=== PATIENT | female | born 1960 | race African-American/Black ===

== ENCOUNTER 2020-05-27 12:01 | Inpatient (IN) | payer OTHER, SELFPAY ==
[2020-05-27] VITALS (17 sets, daily range): BP systolic 146–215; BP diastolic 84–162; PULSE 75–105; RESP 16–28; TEMP 36.3–36.6; O2SAT 77–100; BMI 61.7
--- NOTE | ~2020-05-27 | CT_ITS ---
EXAMINATION: CT chest wo con EXAM DATE: 05/27/2020 14:18 INDICATION: Shortness of breath, pneumonia versus cancer, abnormal chest x-ray. Wheezing. TECHNIQUE: Spiral CT of the chest without contrast. Axial, coronal and sagittal images were reviewe d. Coronal maximum intensity pixel images of chest reviewed. The dose-length product (DLP) for this examination was 774.49 mGy-cm. The exposure was tailored according to patient size (auto mA exposur e control), and iterative reconstruction (ASIR) was used as additional dose reduction technique. Tristan elation is made to chest x-ray same day. FINDINGS: The main, central pulmonary arteries are significantly dilated which can indicate elevated pulmonary arterial pressure, pulmonary arterial hypertension. This is likely what accounts for the c hest x-ray, right infrahilar abnormality. Mild patchy mosaic attenuation, appearance most consistent with mild pulmonary edema, although this could also be air trapping from reactive airway disease. No confluent consolidation. There are no pleural or pericardial effusions. Tracheobronchial tree is pa tent. There is no mediastinal, hilar or axillary lymphadenopathy. There is no pneumothorax. Hea rt normal in size. Patient may have a left anterior descending coronary artery stent. Upper abdome n is unremarkable. There is thoracic spondylosis without osteoblastic or osteolytic lesions identif ied. IMPRESSION: 1. Pulmonary arterial hypertension. 2. Cardiomegaly and possible mild pulmonary edema versus air trapping, reactive airway disease. 3. No evidence of lung cancer. Reviewed, dictated and finalized at location A. IMPRESSION: 1. Pulmonary arterial hypertension. 2. Cardiomegaly and possible mild pulmonary edema versus air trapping, reactiv e airway disease. 3. No evidence of lung cancer.
--- NOTE | ~2020-05-27 | XR_ITS ---
XR chest 2V DATE: 05/27/2020 12:53 INDICATION: Shortness of breath TECHNIQUE: AP and lateral views COMPARISON: None FINDINGS: : There is asymmetric prominence overlying the right lower hilar area; this may be some pul monary consolidation in the right lower lobe versus pulmonary mass lesion. Patchy infiltrate or atele ctasis is suggested in the right mid and both lower lung zones. Examination is limited due to body lynn bitus and AP technique. Cardiomegaly. No apparent pleural effusion. No pneumothorax is evident. IMPRESSION: Cardiac megaly, pulmonary vascular congestion and redistribution, suggesting mild congest berto changes Prominent opacity overlying the right infrahilar area which may represent some overlying consolidatio n; pulmonary mass lesion however is not excluded. Consider CT thorax for more definitive evaluation Patchy infiltrates in the right mid and both lower lung zones; consider pneumonia, pulmonary edema Reviewed, dictated and finalized at location B. IMPRESSION: Cardiac megaly, pulmonary vascular congestion and redistribution, s uggesting mild congestive changes Prominent opacity overlying the right infrahilar area which may represent some overlying consolidation; pulmonary mass lesion however is not excluded. Conside r CT thorax for more definitive evaluation Patchy infiltrates in the right mid and both lower lung zones; consider pneumon ia, pulmonary edema
--- NOTE | 2020-05-27 12:19 | ECG_ITS ---
Measurements Intervals [place] Rate: 98 P: 54 NH: 171 QRS: 13 QRSD: 98 T: 52 QT: 374 QTc: 478 Interpretive Statements SINUS RHYTHM POSSIBLE LEFT ATRIAL ENLARGEMENT BASELINE WANDER- I, II, AVR, AVL, AVF, V4-V6 BORDERLINE ECG Electronically Signed On 05-27-2020 12:34:09 CDT by Augustin Oh D.O.
[2020-05-27 12:31] LABS: Hematocrit 40.6 % (37.0-47.0); Hemoglobin 12.8 g/dL (12.0-15.0); Mean Corpuscular HGB Conc 31.5 g/dl (32-36); Mean Corpuscular Hemoglobin 27.4 pg (26-34); Mean Corpuscular Volume 86.9 fl (80-100); Mean Platelet Volume 9.3 fl (7.4-10.4); Platelet Count Result 250 k/mm3 (150-375); Red Blood Count 4.67 M/mm3 (4.2-5.4); Red Cell Distribution Width 13.3 % (11.5-14.5); White Blood Count 6.8 K/mm3 (4.5-10.0)
[2020-05-27 12:43] LABS: Anion Gap 9 mmol/L (8-16); Blood Urea Nitrogen 8 mg/dL (7-17); Calcium 9.4 mg/dL (8.4-10.2); Carbon Dioxide 38 mmol/L (22-30); Chloride 95 mmol/L (98-107); Estimated CRCL calculation 128 ml/min; Estimated Glomerular Filt Rate > 60; Glucose 190 mg/dL (65-105); Potassium 3.5 mmol/L (3.4-5.0); Sodium 142 mmol/L (137-145)
[2020-05-27 12:50] LABS: Eosinophils Absolute Manual 0.06 K/mm3 (0.02-0.5); Eosinophils Percent Manual 1 % (0-4); Lymphocytes Absolute Manual 2.44 K/mm3 (1.1-4.5); Monocytes Percent Manual 3 % (3-9); Neutrophils Percent Manual 60 % (46-73); Total Cells Counted 100
[2020-05-27 12:51] LABS: Platelet Estimate Adequate (Adequate)
[2020-05-27 12:53] LABS: Large Platelets Present
[2020-05-27] MEDS: LABETALOL HCL INJ 100 MG/20 ML VIAL 20 MG IV PUSH ×2 (13:00→13:19)
[2020-05-27] MEDS: lisinopriL 20 MG TABLET PO (13:01)
--- NOTE | 2020-05-27 13:13 | ED.SOB ---
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 Patient denies any chest pain, fever, chills, nausea, vomiting. Patient did not take her medications today because she was planning to go see her doctor, currently patient on aspirin, Plavix and 2 L of oxygen all the time. Patient requested to go to [facility] after we make a diagnosis. Related Data Home Medications Medication Instructions Recorded Confirmed albuterol sulfate 90 mcg/actuation 2 inhalation INHALATION Q4H PRN gm 03/08/20 aerosol inhaler aspirin 81 mg tablet,delayed 81 mg PO DAILY 03/08/20 release clopidogrel 75 mg tablet 75 mg PO DAILY 03/08/20 furosemide 20 mg tablet 20 mg PO QAM 03/08/20 hydrocodone 7.5 mg-acetaminophen 1 tablet PO Q6H PRN 03/08/20 325 mg tablet lisinopril 20 mg tablet 20 mg PO DAILY 03/08/20 metoprolol succinate 50 mg 50 mg PO DAILY 03/08/20 tablet,extended release 24 hr montelukast 10 mg tablet 10 mg PO DAILY 03/08/20 nifedipine 30 mg tablet,extended 30 mg PO DAILY 03/08/20 release 24 hr nitroglycerin 0.4 mg/hr 1 patch TRANSDERM DAILY 03/08/20 transdermal 24 hour patch oxybutynin chloride 10 mg 10 mg PO DAILY 03/08/20 tablet,extended release 24 hr pantoprazole 40 mg tablet,delayed 40 mg PO QAM 03/08/20 release pravastatin 20 mg tablet 20 mg PO DAILY 03/08/20 Allergies Allergy/AdvReac Type Severity Reaction Status Date / Time Iodinated Contrast Media Allergy hives Verified 05/27/20 13:13 penicillin V [From Pen-Vee K] Allergy hives Verified 05/27/20 13:13 Review of Systems Review of Systems: Narrative: CONSTITUTIONAL: Denies fever, chills, or sweats. EYES: Denies visual changes, redness, or discharge. ENT: Denies rhinorrhea, congestion, sore throat, or otalgia. CARDIOVASCULAR: Denies chest pain, palpitations, or edema. RESPIRATORY: Denies cough or dyspnea. GASTROINTESTINAL: Denies abdominal pain, nausea, vomiting, or diarrhea. GENITOURINARY: Denies dysuria or hematuria. SKIN: Denies rash or itching. MUSCULOSKELETAL: Denies back pain, joint pain, or myalgia. NEUROLOGIC: Denies headache, numbness, or weakness. PSYCHIATRIC: Denies anxiety or depression. 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 Overactive bladder Severe systemic inflammatory response syndrome (SIRS) Sleep apnea, unspecified Type 2 diabetes mellitus with other circulatory complications Type 2 diabetes mellitus with other specified complication Type 2 diabetes mellitus with unspecified complications Social History Social History Gender identity (if verbalized by the patient): Female Exam Narrative: Exam Narrative: General appearance: Well-developed, well-nourished, morbidly obese, no family member at the bedside Skin: Normal color, Head: Normocephalic, nontraumatic Eyes: Clear conjunctiva ENT: Oropharynx normal, ears normal, nose normal Neck: Supple, nontender Chest and respiratory: Airway patent, no respiratory distress, no accessory muscle use, diff
[2020-05-27 13:23] LABS: Lactic Acid Reflex 1.3 mmol/L (0.7-2.1)
[2020-05-27 13:24] LABS: INR 1.1; Prothrombin Time 13.7 Seconds (11.1-14.7)
[2020-05-27 13:25] LABS: Partial Thromboplastin Time 35.4 SECONDS (22.3-36.8)
[2020-05-27] MEDS: methylPREDNISolone SOD SUCC 125 MG VIAL IV PUSH (13:25)
[2020-05-27] MEDS: IPRATROPIUM BR 0.02% INH SOLN 0.5 MG/2.5 ML VIAL INHALATION ×2 (13:27→20:47)
[2020-05-27] MEDS: ALBUTEROL SULFATE NEB 2.5 MG/0.5 ML INH 5 MG INHALATION ×2 (13:27→20:47)
[2020-05-27 13:28] LABS: Alanine Aminotransferase 15 U/L (4-35); Albumin Level 4.5 g/dL (3.5-5.1); Alkaline Phosphatase 107 U/L (38-126); Anion Gap 5.99999 mmol/L (8-16); Aspartate Amino Transferase 24 U/L (14-36); Bilirubin,Total 0.6 mg/dL (0.2-1.3); Blood Urea Nitrogen 8 mg/dL (7-17); CRP 2.1 mg/dL (<1.0); Calcium 9.5 mg/dL (8.4-10.2); Carbon Dioxide > 40 mmol/L (22-30); Chloride 94 mmol/L (98-107); Estimated CRCL calculation 128 ml/min; Estimated Glomerular Filt Rate > 60; Glucose 191 mg/dL (65-105); Potassium 3.5 mmol/L (3.4-5.0); Sodium 140 mmol/L (137-145)
[2020-05-27 14:04] LABS: NT Pro B Type Natriuretic Pept 269 PG/ML (5-100)
[2020-05-27] MEDS: FUROSEMIDE INJ 40 MG/4 ML VIAL IV PUSH (14:25)
[2020-05-27] MEDS: NITROGLYCERIN OINTMENT 1 INCH DOSE TRANSDERM (16:40)
--- NOTE | 2020-05-27 17:39 | ADMGEN ---
This patient, Payton Adames, was admitted to Medical Room 252-01. Patient/family oriented to hospital policies and general routines including ID bracelet, bed and alarms, visiting hours, pain management, procedures, bathroom and other care routines, personal items, smoking policy, room service/diet, and visiting hours. Valuables list has been completed. Information on how to activate the Rapid Response Team has been discussed. Patient/Family are encouraged to report perceived risks to care and to ask questions if they do not understand what they are told or what they should do.
--- NOTE | 2020-05-27 19:30 | PM.IMHP ---
H&P: HPI History of Present Illness Date/Time: 05/27/20 19:30 Chief complaint: Shortness of breath and elevated blood pressure. 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 At baseline it sounds like she is very limited by her shortness of breath, and is not unusual for her to avoid going down stairs due to severe shortness of breath when climbing back up the stairs. Today she was wheezing more than usual which she attributed to some mild postnasal drip that she has been experiencing. It does not sound as though she has been using her rescue inhaler or nebulizers for relief of the wheezing, and in fact she has been using her nebulizers less than normal for unclear reasons. Today she had a routine appointment with her ear nose and throat specialist, and she was immediately sent to the emergency department as her blood pressure was well over 200 and her SpO2 on room air was 77%. As mentioned, she does have chronic respiratory failure but it sounds as though she only uses oxygen at nighttime with her CPAP. With further questioning she admits that she has been sleeping poorly, maybe 2 to 3 hours a day as she wakes up frequently at nighttime despite being compliant with her CPAP. She is not certain if she wakes up due to shortness of breath but notes that she will occasionally be confused and has even been hallucinating rats in her bedroom when waking in the middle the night. She denies fever, chills, sweats, sinus congestion, anosmia, dysgeusia, chest pain, palpitations, pleuritic pain, nausea, vomiting, dysphagia, and concerns for aspiration. She also denies headache, auditory and visual changes, focal weakness, and paresthesias. Review of Systems Review of Systems: Narrative: Twelve systems were reviewed with pertinent positives and negatives as per HPI. No recent travel or sick contacts. She denies headache. No lightheadedness or dizziness. She denies cough. No nausea, vomiting, or diarrhea. No dysuria. Except as documented, all other systems were reviewed and are negative. [facility] Past Medical History Medical History (Updated 05/27/20 @ 22:29 by Violet Hilario PA-C) Allergic rhinitis Chronic obstructive pulmonary disease Chronic respiratory failure with hypoxia and hypercapnia On 2 L at nighttime. Congestive heart failure Type unknown. Coronary artery disease Gastroesophageal reflux disease Hyperlipidemia Hypertension Morbid obesity Obstructive sleep apnea on CPAP 2 L bleed in. Overactive bladder Type 2 diabetes mellitus Surgical History Surgical History (Updated 05/27/20 @ 22:23 by Violet Hilario PA-C) History of cardiac catheterization With stent x3. History of cholecystectomy History of tubal ligation Family History Family History (Updated 05/27/20 @ 22:24 by Violet Hilario PA-C) Other Diabetes mellitus Heart disease Hypertension Social History Social History (Updated 05/27/20 @ 22:25 by Violet Hilario PA-C) Social History: Surrogate decision maker: Yamileth Adler, sister. Code status: Full code Smoking status: Former smoker Second hand tobacco smoke exposure: Yes Additional smoking assessment comments: She smoked for a couple of months 35+ years ago. Alcohol intake: never Substance use: never Additional living arrangements comments: Lives in [place] with 2 grandchildren, ages 15 and 16. 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 Gender identity (if verbalized by the patient): Female Spiritual care concerns: No Meds Home Medications and Allergies Home Medications Medication I
[2020-05-27 21:06] LABS: Glucose Point of Care 329 (65-105)
[2020-05-28] VITALS (29 sets, daily range): BP systolic 141–183; BP diastolic 72–114; PULSE 45–109; RESP 16–27; TEMP 36.2–36.6; O2SAT 86–99
[2020-05-28] MEDS: ALBUTEROL SULFATE NEB 2.5 MG/0.5 ML INH 5 MG INHALATION ×4 (02:23→19:51)
[2020-05-28] MEDS: IPRATROPIUM BR 0.02% INH SOLN 0.5 MG/2.5 ML VIAL INHALATION ×4 (02:23→19:51)
[2020-05-28 04:33] LABS: Fractional Inspired Oxygen 28 %; HCO3 VBG 33.9 mEq/l (24.0-30.0); PCO2 VBG 60.4 mmHg (42.0-48.0); pH VBG 7.367 (7.300-7.400)
[2020-05-28 04:34] LABS: Device CPAP
[2020-05-28 07:51] LABS: Glucose Point of Care 312 (65-105)
[2020-05-28] MEDS: ASPIRIN 81 MG ENTERIC TABLET PO (08:27)
[2020-05-28] MEDS: NITROGLYCERIN 0.4 MG/HR PATCH 1 PATCH TRANSDERM (08:27)
[2020-05-28] MEDS: predniSONE 20 MG TABLET 40 MG PO (08:28)
[2020-05-28] MEDS: FUROSEMIDE 20 MG TABLET 40 MG PO (08:28)
[2020-05-28] MEDS: ENOXAPARIN 40 MG/0.4 ML SYRINGE SUB-Q (08:28)
[2020-05-28] MEDS: CLOPIDOGREL BISULFATE 75 MG TABLET PO (08:28)
[2020-05-28] MEDS: METOPROLOL SUCCINATE EXT REL 50 MG TABCR PO (08:29)
[2020-05-28] MEDS: lisinopriL 20 MG TABLET 40 MG PO (08:29)
[2020-05-28] MEDS: MONTELUKAST SODIUM 10 MG TABLET PO (08:29)
[2020-05-28] MEDS: PANTOPRAZOLE 40 MG TABLET PO (08:30)
[2020-05-28] MEDS: PRAVASTATIN SODIUM 20 MG TABLET 40 MG PO (08:30)
[2020-05-28] MEDS: INSULIN ASPART (*BKC) 100 UNITS/ML SUB-Q ×3 (08:46→17:38)
[2020-05-28] MEDS: metFORMIN HCL XR 500 MG TAB.SR.24H 1000 MG PO (08:47)
[2020-05-28 09:41] LABS: Hemoglobin A1C 8.4 % (<5.7)
--- NOTE | 2020-05-28 11:18 | HOMEO2EVAL ---
Home Oxygen Evaluation RC: Home Oxygen (O2) Evaluation Start: 05/27/20 22:46 Freq: ONCE Status: Active Protocol: RPE Activity Type Activity Date Activity User E-Sign Co-Sign Detail Recorded Client Recorded Date Recorded By Document 05/28/20 10:50 [email or web address] [email or web address] 05/28/20 11:18 DJO Document 05/28/20 10:55 [email or web address] [email or web address] 05/28/20 11:18 DJO Document 05/28/20 11:00 [email or web address] [email or web address] 05/28/20 11:18 DJO Document 05/28/20 11:05 [email or web address] [email or web address] 05/28/20 11:18 DJO Document 05/28/20 11:15 [email or web address] [email or web address] 05/28/20 11:18 DJO 05/28/20 05/28/20 05/28/20 10:50 10:55 11:00 Home O2 Evaluation Test Phase Resting Exercise Exercise Oxygen Delivery Room Air Room Air Nasal Cannula Oxygen Flow Rate (L/min) 1 Pulse Oximetry (90-100 %) 94 86 L 88 L Pulse Rate (60-100 beats/min) 87 89 98 Activity Tolerance Rating of Perceived Dyspnea (PD) Ambulation Distance (feet) Treatment Charges O2 Evaluation 05/28/20 05/28/20 11:05 11:15 Home O2 Evaluation Test Phase Exercise Resting Oxygen Delivery Nasal Cannula Room Air Oxygen Flow Rate (L/min) 2 Pulse Oximetry (90-100 %) 90 94 Pulse Rate (60-100 beats/min) 109 H 86 Activity Tolerance Fair Rating of Perceived Dyspnea (PD) +3 Moderate Difficulty, But Can Continue Ambulation Distance (feet) 200 Treatment Charges
--- NOTE | 2020-05-28 11:22 | PCRCNOTE ---
HOME O2 EVAL COMPLETE, 2 LITERS WITH ACTIVITY, PT HAS NOCTURNAL O2 WITH [facility] PHONE NUMBER [phone]
[2020-05-28 11:39] LABS: Glucose Point of Care 341 (65-105)
--- NOTE | 2020-05-28 13:28 | PM.IMPN ---
Progress Note: A&P Assessment and Plan (1) Acute respiratory failure with hypoxia: Code(s): J96.01 - Acute respiratory failure with hypoxia Status: Acute Assessment and Plan: -----patient now requires 2 L of oxygen with activity likely due to longstanding long history of COPD, asthma and sleep apnea. She says she uses a CPAP regularly. She usually only needs 2 L of oxygen at night but has noticed the last few months needing it with exertion. She had plans to establish care with pulmonology but was sent to the ER from their office. She is going to follow-up with them. Her glucose increased due to the steroids and she has had no wheezing on exam, I am going to stop the steroids at this time. CT shows no evidence of lung cancer but maybe mild CHF. She is to continue Lasix and follow-up with her primary care physician. I do not think active CHF is causing this issue at this time but should be follow-up with her primary care physician. She has no chest pain to suspect ACS. (2) Acute and chronic respiratory failure: Code(s): J96.20 - Acute and chronic respiratory failure, unspecified whether with hypoxia or hypercapnia Status: Acute Assessment and Plan: -----see above. Patient has oxygen with activity in addition to at night. (3) COPD exacerbation: Code(s): J44.1 - Chronic obstructive pulmonary disease with (acute) exacerbation Status: Acute Assessment and Plan: -----as above (4) Obstructive sleep apnea on CPAP: Code(s): G47.33 - Obstructive sleep apnea (adult) (pediatric); Z99.89 - Dependence on other enabling machines and devices Status: Acute Assessment and Plan: -----continue CPAP (5) Congestive heart failure: Code(s): I50.9 - Heart failure, unspecified Status: Acute Assessment and Plan: -----chronic, continue Lasix. BNP only 269, pt feels to be at baseline. Follow-up with primary care physician (6) Hypertensive urgency: Code(s): I16.0 - Hypertensive urgency Status: Acute Assessment and Plan: -----bp improved now 156/99 but was higher on admission up to 215/106. Continue lisinopril, lasix, metorpolol. Will watch trends overnight and adjust as needed. (7) Type 2 diabetes mellitus: Code(s): E11.9 - Type 2 diabetes mellitus without complications Status: Acute Assessment and Plan: -----Last glucose 341 likely elevated d/t IV and oral steroids. Since she has no wheezing and I think the main reason she came in is for hypoxia. I have stopped the steroids at this time and will continue high dose scale SSI. I called her pharmacy who states her Rx is for 500mg of metformin XL 2 pills, daily. She thinks it is only one pill. She is to follow up with her pcp about this. Will continue with metformin. discharge tomorrow once her glucose is better controlled. Time Spent With Patient Time with patient: 25 - 35 minutes Subjective Date/time seen: 05/28/20 13:28 Interval history: Pt is a 59-year-old female here for hypoxia. Patient states she is feeling much better today. She has no shortness of breath while sitting but if she is up and moving around she feels short of breath. This is no different than her baseline at home. She says that she does okay with the oxygen as needed but when she goes down stairs or goes outside she feels short of breath and has to go back in and get some oxygen. She does not have any portable oxygen as she was previously only prescribed oxygen at night. She now qualifies for 2 L with activity which I think will significantly help her. She says her lower extremity swelling has improved. When asked about her diabetes medication, she thought she only takes 500 mg daily but her pharmacy says it is 2 tabs daily. She is going to verify with her doctor. She has little indigestion today but no chest pain, fevers, chills, wheezing, abdominal pain, nausea or vomi
[2020-05-28] MEDS: hydrALAZINE HCL 20 MG/ML VIAL 10 MG IV PUSH (14:14)
[2020-05-28 17:37] LABS: Glucose Point of Care 315 (65-105)
[2020-05-28 20:52] LABS: Glucose Point of Care 344 (65-105)
[2020-05-29] VITALS (20 sets, daily range): BP systolic 105–149; BP diastolic 57–94; PULSE 45–87; RESP 16–22; TEMP 36.3–36.7; O2SAT 93–100
[2020-05-29] MEDS: ALBUTEROL SULFATE NEB 2.5 MG/0.5 ML INH 5 MG INHALATION ×4 (02:46→20:23)
[2020-05-29] MEDS: IPRATROPIUM BR 0.02% INH SOLN 0.5 MG/2.5 ML VIAL INHALATION ×4 (02:46→20:23)
[2020-05-29 07:41] LABS: Glucose Point of Care 193 (65-105)
[2020-05-29] MEDS: NITROGLYCERIN 0.4 MG/HR PATCH 1 PATCH TRANSDERM (08:29)
[2020-05-29] MEDS: ENOXAPARIN 40 MG/0.4 ML SYRINGE SUB-Q (08:29)
[2020-05-29] MEDS: FUROSEMIDE 20 MG TABLET 40 MG PO (08:30)
[2020-05-29] MEDS: metFORMIN HCL XR 500 MG TAB.SR.24H 1000 MG PO (08:30)
[2020-05-29] MEDS: PRAVASTATIN SODIUM 20 MG TABLET 40 MG PO (08:30)
[2020-05-29] MEDS: MONTELUKAST SODIUM 10 MG TABLET PO (08:30)
[2020-05-29] MEDS: PANTOPRAZOLE 40 MG TABLET PO (08:30)
[2020-05-29] MEDS: ASPIRIN 81 MG ENTERIC TABLET PO (08:30)
[2020-05-29] MEDS: lisinopriL 20 MG TABLET 40 MG PO (08:30)
[2020-05-29] MEDS: METOPROLOL SUCCINATE EXT REL 50 MG TABCR PO (08:31)
[2020-05-29] MEDS: CLOPIDOGREL BISULFATE 75 MG TABLET PO (08:31)
[2020-05-29 11:36] LABS: Glucose Point of Care 212 (65-105)
--- NOTE | 2020-05-29 11:57 | PM.IMPN ---
Progress Note: A&P Assessment and Plan (1) Bacteremia: Code(s): R78.81 - Bacteremia Status: Acute Assessment and Plan: -----coag-negative staph noted in both blood cultures. I am unsure of the significance at this time since the patient has been afebrile, her white blood cell count is normal, and she feels back to baseline. She is not on any immunosuppressive therapy but does have uncontrolled diabetes. She has some breaks in her skin but nothing that seems acutely infected or cellulitis. She has no dysuria but I will obtain a urine culture. New blood cultures have been drawn and I will add a CRP tomorrow morning (2.1 on admission). Dr[address] lima has been consulted and I appreciate his further recommendations. (2) Acute respiratory failure with hypoxia: Code(s): J96.01 - Acute respiratory failure with hypoxia Status: Acute Assessment and Plan: -----patient now requires 2 L of oxygen with activity likely due to longstanding long history of COPD, asthma and sleep apnea. She says she uses a CPAP regularly. She usually only needs 2 L of oxygen at night but has noticed the last few months needing it with exertion. She had plans to establish care with pulmonology but was sent to the ER from their office. She is going to follow-up with them. Her glucose increased due to the steroids and she has had no wheezing on exam, so her steroids have been stopped. CT shows no evidence of lung cancer but maybe mild CHF. She is to continue Lasix and follow-up with her primary care physician. I do not think active CHF is causing this issue at this time but should be follow-up with her primary care physician. She has no chest pain to suspect ACS. (3) Acute and chronic respiratory failure: Code(s): J96.20 - Acute and chronic respiratory failure, unspecified whether with hypoxia or hypercapnia Status: Acute Assessment and Plan: -----see above. Patient has oxygen with activity in addition to at night. (4) COPD exacerbation: Code(s): J44.1 - Chronic obstructive pulmonary disease with (acute) exacerbation Status: Acute Assessment and Plan: -----as above (5) Obstructive sleep apnea on CPAP: Code(s): G47.33 - Obstructive sleep apnea (adult) (pediatric); Z99.89 - Dependence on other enabling machines and devices Status: Acute Assessment and Plan: -----continue CPAP (6) Congestive heart failure: Code(s): I50.9 - Heart failure, unspecified Status: Acute Assessment and Plan: -----chronic, continue Lasix. BNP only 269, pt feels to be at baseline. Follow-up with primary care physician (7) Hypertensive urgency: Code(s): I16.0 - Hypertensive urgency Status: Acute Assessment and Plan: -----bp improved now 149/85 but was higher on admission up to 215/106. Continue lisinopril, lasix, metorpolol. Will watch trends overnight and adjust as needed. (8) Type 2 diabetes mellitus: Code(s): E11.9 - Type 2 diabetes mellitus without complications Status: Acute Assessment and Plan: -----Last glucose 212 likely elevated d/t IV and oral steroids from prior days. I have stopped the steroids at this time and will continue high dose scale SSI and will add Lantus tonight. I called her pharmacy who states her Rx is for 500mg of metformin XL 2 pills, daily. She thinks it is only one pill. She is to follow up with her pcp about this. Will continue with metformin. Subjective Date/time seen: 05/29/20 11:57 Interval history: Pt is a 59-year-old female here for hypoxia. Patient states she is feeling much better today and thinks she is back to baseline. We discussed her bacteremia and she denies a recent sore throat but has been popping and picking at some skin lesions since she has dry skin. She denies dysuria or diarrhea. She feels much better on the o2 and is ready to go home. No CP, fevers, chi
[2020-05-29] MEDS: INSULIN ASPART (*BKC) 100 UNITS/ML SUB-Q (12:00)
[2020-05-29 16:17] LABS: Glucose Point of Care 160 (65-105)
[2020-05-29] MEDS: EUCERIN CREAM 120 GM JAR 1 APPLIC TOPICAL (17:26)
[2020-05-29 17:30] LABS: Add Urine Microscopic? YES; Appearance Urine Cloudy (Clear); Bacteria Urine Trace /hpf; Bilirubin Urine Negative (Negative); Blood Urine 1+ (Negative); Color Urine Yellow (Yellow); Glucose Urine UA Negative (Negative); Ketones Urine Negative (Negative); Leukocyte Esterase Ur 2+ LEU/UL (Negative); Mucus Urine Rare /lpf; Nitrate Urine Negative (Negative); Protein Urine 1+ mg/dL (Negative); Specific Grav Ur 1.023 (1.001-1.035); Squamous Epithelial Cell Urine Many /hpf (Few); WBC Urine 21-30 /hpf
[2020-05-29 20:26] LABS: Glucose Point of Care 282 (65-105)
[2020-05-29] MEDS: INSULIN GLARGINE (*BKC) 100 UNITS/ML 8 UNITS SUB-Q (21:21)
[2020-05-30] VITALS (16 sets, daily range): BP systolic 111–162; BP diastolic 57–79; PULSE 72–98; RESP 16–23; TEMP 36.2–36.6; O2SAT 95–100
[2020-05-30] MEDS: ALBUTEROL SULFATE NEB 2.5 MG/0.5 ML INH 5 MG INHALATION ×3 (02:28→13:54)
[2020-05-30] MEDS: IPRATROPIUM BR 0.02% INH SOLN 0.5 MG/2.5 ML VIAL INHALATION ×3 (02:28→13:54)
[2020-05-30 03:57] LABS: Basophils Percent Auto 0.5 % (0.2-1.2); Eosinophils Absolute Auto 0.2 K/mm3 (0-0.3); Eosinophils Percent Auto 2.1 % (0-4.4); Hematocrit 35.7 % (37.0-47.0); Hemoglobin 11.3 g/dL (12.0-15.0); Immature Granulocyte Absolute 0.02 K/mm3 (0.00-0.031); Immature Granulocyte Percent A 0.2 % (0-0.5); Lymphocytes Absolute Auto 3.12 K/mm3 (0.9-3.2); Lymphocytes Percent Auto 38.4 % (18.3-44.2); Mean Corpuscular HGB Conc 31.7 g/dl (32-36); Mean Corpuscular Hemoglobin 27.4 pg (26-34); Mean Corpuscular Volume 86.7 fl (80-100); Mean Platelet Volume 9.2 fl (7.4-10.4); Monocytes Absolute Auto 0.5 K/mm3 (0.1-0.6); Monocytes Percent Auto 6.3 % (2.6-8.5); Neutrophils Absolute Auto 4.3 K/mm3 (1.3-6.7); Neutrophils Percent Auto 52.5 % (45.5-73.1); Platelet Count Result 244 k/mm3 (150-375); Red Blood Count 4.12 M/mm3 (4.2-5.4); Red Cell Distribution Width 13.5 % (11.5-14.5); White Blood Count 8.1 K/mm3 (4.5-10.0)
[2020-05-30 04:14] LABS: Alanine Aminotransferase 14 U/L (4-35); Albumin Level 3.7 g/dL (3.5-5.1); Alkaline Phosphatase 74 U/L (38-126); Anion Gap 6 mmol/L (8-16); Aspartate Amino Transferase 24 U/L (14-36); Bilirubin,Total 0.5 mg/dL (0.2-1.3); Blood Urea Nitrogen 17 mg/dL (7-17); Calcium 8.8 mg/dL (8.4-10.2); Carbon Dioxide 36 mmol/L (22-30); Chloride 94 mmol/L (98-107); Estimated CRCL calculation 124 ml/min; Estimated Glomerular Filt Rate > 60; Glucose 164 mg/dL (65-105); Potassium 3.4 mmol/L (3.4-5.0); Sodium 136 mmol/L (137-145)
[2020-05-30 04:35] LABS: Vancomycin Trough 16.3 ug/mL (10.0-20.0)
[2020-05-30 08:19] LABS: Glucose Point of Care 138 (65-105)
[2020-05-30] MEDS: metFORMIN HCL XR 500 MG TAB.SR.24H 1000 MG PO (08:30)
[2020-05-30] MEDS: NITROGLYCERIN 0.4 MG/HR PATCH 1 PATCH TRANSDERM (08:30)
[2020-05-30] MEDS: ENOXAPARIN 40 MG/0.4 ML SYRINGE SUB-Q (08:30)
[2020-05-30] MEDS: PANTOPRAZOLE 40 MG TABLET PO (08:31)
[2020-05-30] MEDS: MONTELUKAST SODIUM 10 MG TABLET PO (08:31)
[2020-05-30] MEDS: ASPIRIN 81 MG ENTERIC TABLET PO (08:31)
[2020-05-30] MEDS: PRAVASTATIN SODIUM 20 MG TABLET 40 MG PO (08:31)
[2020-05-30] MEDS: lisinopriL 20 MG TABLET 40 MG PO (08:31)
[2020-05-30] MEDS: METOPROLOL SUCCINATE EXT REL 50 MG TABCR PO (08:31)
[2020-05-30] MEDS: FUROSEMIDE 20 MG TABLET 40 MG PO (08:31)
[2020-05-30] MEDS: CLOPIDOGREL BISULFATE 75 MG TABLET PO (08:31)
[2020-05-30 08:39] LABS: Glucose Point of Care 128 (65-105)
[2020-05-30] MEDS: EUCERIN CREAM 120 GM JAR 1 APPLIC TOPICAL (11:31)
[2020-05-30 11:32] LABS: Glucose Point of Care 163 (65-105)
--- NOTE | 2020-05-30 14:56 | PM.DS ---
DS: Admitting Diagnosis Admitting Diagnosis Admitting Diagnosis: Shortness of breath and elevated blood pressure. DS: Discharge Diagnosis Discharge Diagnosis (1) Bacteremia: Code(s): R78.81 - Bacteremia Status: Acute Assessment and Plan: -----growing coag-negative staph noted in both blood cultures. Likely due to contaminant since the patient reports that all 4 blood cultures were drawn out of the same site with the same needle. She has had absolutely no fevers, symptoms of infection, or leukocytosis. Her UA appears to be a contaminant but she has not had any dysuria or any other signs of infection. I consulted with Infectious Disease who recommended really running the blood cultures and if they were negative initially she can go home. We will monitor these until finalized. If they happen to be positive, I will call the patient and have her come back to the emergency room. For now, no need for antibiotic treatment. (2) Acute respiratory failure with hypoxia: Code(s): J96.01 - Acute respiratory failure with hypoxia Status: Acute Assessment and Plan: -----patient now requires 2 L of oxygen with activity likely due to longstanding long history of COPD, asthma and sleep apnea. She says she uses a CPAP regularly. She usually only needs 2 L of oxygen at night but has noticed the last few months needing it with exertion. She had plans to establish care with pulmonology but was sent to the ER from their office. She is going to follow-up with them. I have started her on an inhaled corticosteroid. She was given a few doses of steroids during her stay which increased her glucose and were discontinued and she has done well since. CT shows no evidence of lung cancer but maybe mild CHF. She is to continue Lasix and follow-up with her primary care physician. I do not think active CHF is causing this issue at this time but should be follow-up with her primary care physician. She has no chest pain to suspect ACS. (3) Acute and chronic respiratory failure: Code(s): J96.20 - Acute and chronic respiratory failure, unspecified whether with hypoxia or hypercapnia Status: Acute Assessment and Plan: -----see above. (4) COPD exacerbation: Code(s): J44.1 - Chronic obstructive pulmonary disease with (acute) exacerbation Status: Acute Assessment and Plan: -----as above (5) Obstructive sleep apnea on CPAP: Code(s): G47.33 - Obstructive sleep apnea (adult) (pediatric); Z99.89 - Dependence on other enabling machines and devices Status: Acute Assessment and Plan: -----continue CPAP (6) Congestive heart failure: Code(s): I50.9 - Heart failure, unspecified Status: Acute Assessment and Plan: -----chronic, continue Lasix. BNP only 269, pt feels to be at baseline. Follow-up with primary care physician (7) Hypertensive urgency: Code(s): I16.0 - Hypertensive urgency Status: Acute Assessment and Plan: -----bp 162/79 111/57 earlier today and was higher on admission up to 215/106. Continue lisinopril, lasix, metorpolol and follow-up with primary care physician. Patient was educated that she needs to lose weight (8) Type 2 diabetes mellitus: Code(s): E11.9 - Type 2 diabetes mellitus without complications Status: Acute Assessment and Plan: -----last glucose 163. I called her pharmacy who states her Rx is for 500mg of metformin XL 2 pills, daily. She thinks it is only one pill. She is to follow up with her pcp about this. Will continue with metformin. DS: Summary Hospital Course Reason for hospitalization: Acute respiratory failure with hypoxia Hospital Course: Patient is a 59-year-old female with morbid obesity, COPD and diabetes who presents emergency room for hypoxia on her way to the pulmonology office. Vitals in the ER were temperature 36.6? C, pulse 105, respiratory
[2020-05-30 16:39] LABS: Glucose Point of Care 151 (65-105)
--- NOTE | 2020-06-01 15:23 | PC.NURSE ---
Urine cx shows no growth.
--- NOTE | 2020-06-17 08:36 | PC.NURSE ---
Blood culture is negative.
== END 2020-05-30 19:27 | disposition home or self-care (01) | DRG 140 ==
LOC: ANHED 14:06 → ANH2MED 16:12
PROVIDERS: Physician Assistant; Admitting Provider Internal Medicine; Emergency Provider Emergency Medicine; Visit Provider Family Medicine
DX: J44.1 Chronic obstructive pulmonary disease with (acute) exacerbation (principal); J96.21 Acute and chronic respiratory failure with hypoxia; J96.22 Acute and chronic respiratory failure with hypercapnia; G47.33 Obstructive sleep apnea (adult) (pediatric); I11.0 Hypertensive heart disease with heart failure; I50.9 Heart failure, unspecified; I16.0 Hypertensive urgency; E11.9 Type 2 diabetes mellitus without complications; K21.9 Gastro-esophageal reflux disease without esophagitis; I25.10 Atherosclerotic heart disease of native coronary artery without angina pectoris; E66.01 Morbid (severe) obesity due to excess calories; Z68.44 Body mass index [BMI] 60.0-69.9, adult; Z79.4 Long term (current) use of insulin; Z95.5 Presence of coronary angioplasty implant and graft; Z99.81 Dependence on supplemental oxygen; Z90.49 Acquired absence of other specified parts of digestive tract
CPT/HCPCS: 36415; 71046; 71250; 80048; 80053; 80076; 80202; 81001; 82803; 83036; 83605; 83880; 84443; 85025; 85610; 85730; 86140; 87040; 87077; 87086; 87186; 93005; 94618; 94640; 96365; 96366; 96372; 96375; 99199; 99285; A9270; G0378; G0379; J0360; J1650; J1815; J1940; J1956; J2930; J3370; J7512